=== PATIENT | male | born 1945 | race Caucasian/White ===

== ENCOUNTER 2021-09-04 04:48 | Emergency (ER) | payer MEDICARE, OTHER ==
[~2021-09-04 04:48] MED LIST: COZAAR 50MG TAB50 MG PO; PRAVACHOL80 MG PO; PROTONIX 40 MG40 M1 PO
[2021-09-04 05:38] LABS: HEMOGLOBIN 13.4 gm/dl (14.0-17.5); RED BLOOD COUNT 4.51 M/UL (4.20-5.50)
[2021-09-04 05:56] LABS: WHITE BLOOD COUNT 33.5 K/UL (4.5-11.0)
[2021-09-04 05:59] LABS: BUN/CREATININE RATIO 17 (0-10)
[2021-09-04] MEDS ORDERED: Voltaren Gel 1% TOP (11:27)
== END 2021-09-04 11:46 | disposition home or self-care (01) ==
LOC: ER1 04:48
PROVIDERS: Physician Assistant
DX: S43.035A Inferior dislocation of left humerus, initial encounter (principal); I10 Essential (primary) hypertension; Z72.89 Other problems related to lifestyle; W01.0XXA Fall on same level from slipping, tripping and stumbling without subsequent striking against object, initial encounter
CPT/HCPCS: 23650; 70496; 71045; 71260; 72125; 73020; 73030; 80053; 81001; 82550; 82553; 83605; 84484; 85025; 87040; 93005; 99284; G0480; J2704; J7030; Q9967